=== PATIENT | female | born 1955 | race Caucasian/White ===

== ENCOUNTER 2020-10-02 11:40 | Inpatient (IN) ==
[2020-10-02] MEDS ORDERED: *HR* Propofol 200 MG/20 ML VIAL IVP ONE (12:03)
[2020-10-02] MEDS ORDERED: *HR* FentaNYL (PF) 100 MCG/2 ML VIAL ONE ×2 (12:03→14:27)
[2020-10-02] MEDS ORDERED: *HR* Midazolam HCl 2 MG/2 ML VIAL ONE (12:03)
[2020-10-02] MEDS ORDERED: Lidocaine -MPF 2% 2 ML VIAL ONE (12:04)
[2020-10-02] MEDS ORDERED: cefOXitin 2,000 MG in Water for inj. (sterile) 20 ML IVP ONE (12:24)
[2020-10-02] MEDS: Ringers Solution, Lactated 1,000 ML IVC SCH ×2 (12:38→17:11)
[2020-10-02 12:59] LABS: Hematocrit 39.5 % (35.3-44.9); Hemoglobin 12.9 g/dL (11.5-15.4)
[2020-10-02] MEDS ORDERED: Lidocaine HCL 4 ML Topical Solution (Laryng-O-Jet Kit Sterile Pak) TP ONE (13:11)
[2020-10-02] MEDS ORDERED: Promethazine 6.25 MG in Water for inj. (sterile) 20 ML IVPB PRN (13:24)
[2020-10-02] MEDS ORDERED: *HR* OxyCODONE Immed Rel 5 MG TABLET PO PRN (13:24)
[2020-10-02] MEDS ORDERED: *HR* HYDROmorphone PF 0.5 MG/0.5 ML SYRINGE IVP PRN (13:24)
[2020-10-02] MEDS ORDERED: Famotidine 20 MG/2 ML VIAL IVP ONE (13:24)
[2020-10-02] MEDS ORDERED: Acetaminophen IV 1,000 MG/100 ML BAG IVPB ONE (13:24)
[2020-10-02] MEDS ORDERED: Albuterol 2.5 MG/3 ML NEBULIZER IH PRN (13:24)
[2020-10-02] MEDS ORDERED: Ondansetron 4 MG/2 ML VIAL IVP PRN ×2 (13:24→17:33)
[2020-10-02] MEDS ORDERED: *HR* Labetalol 20 MG/4 ML SYRINGE IVP PRN (13:24)
[2020-10-02] MEDS ORDERED: Ondansetron 4 MG/2 ML VIAL ONE (14:34)
[2020-10-02] MEDS ORDERED: *HR* Rocuronium Bromide 50 MG/5 ML VIAL ONE (14:42)
[2020-10-02] MEDS ORDERED: 0.9 % Sodium Chloride 1,000 ML IVC SCH (17:33)
[2020-10-02] MEDS ORDERED: Naloxone 0.4 MG/ML INJ IVP PRN (17:33)
[2020-10-02] MEDS: *HR* Heparin 5,000 UNIT/ML VIAL SQ SCH ×2 (18:10→21:47)
[2020-10-02] MEDS: Ketorolac 15 MG/ML VIAL IVP SCH (18:11)
[2020-10-02] MEDS: Acetaminophen IV 1,000 MG/100 ML BAG IVPB SCH (18:47)
[2020-10-02 20:14] LABS: Basophils % 0.2 %; Eosinophils % 0.1 %; Hematocrit 28.6 % (35.3-44.9); Immature Granulocytes % 0.4 % (0-4); Lymphocytes # 1.1 K/mcL (0.6-4.6); Lymphocytes % 7.9 %; Mean Corpuscular HGB Conc 32.2 g/dL (31.6-35.5); Mean Corpuscular Hemoglobin 29.8 pg (28.0-33.3); Mean Corpuscular Volume 92.6 fL (83.0-100.0); Mean Platelet Volume 8.9 fL (9.4-12.4); Monocytes # 0.6 K/mcL (0.0-1.3); Monocytes % 4.7 %; Neutrophils # 11.7 K/mcL (1.6-8.9); Platelet Count 332 K/mcL (140-400); Red Blood Count 3.09 M/mcL (3.82-4.97); Red Cell Distribution Width 13.3 % (11.5-14.5); Segmented Neutrophils % 86.7 %; White Blood Count 13.5 K/mcL (4.3-11.1)
[2020-10-02 20:19] LABS: INR 1.1; Prothrombin Time 13.2 Seconds (9.4-12.1)
[2020-10-02 20:22] LABS: Hemoglobin 9.2 g/dL (11.5-15.4)
[2020-10-02 20:34] LABS: BUN/Creatinine Ratio 15 (6-26); Blood Urea Nitrogen 11 mg/dL (8-23); Calcium 8.1 mg/dL (8.6-10.3); Carbon Dioxide 22 mEq/L (23-29); Chloride 101 mEq/L (98-107); Glucose 232 mg/dL (70-105); Osmolality,Calculated 279 (280-300); Potassium 4.4 mEq/L (3.5-5.1); Sodium 131 mEq/L (136-145); eGFR For African Americans > 60 (> 60); eGFR For Non-African Americans > 60 (> 60)
[2020-10-02] MEDS ORDERED: 0.9 % Sodium Chloride 250 ML ONE (21:36)
[2020-10-02] MEDS: 0.9 % Sodium Chloride 1,000 ML IVC SCH (21:44)
[2020-10-03] MEDS ORDERED: *HR* Dextrose 50 % in Water (Vial) 50 ML VIAL IVP PRN (00:24)
[2020-10-03] MEDS ORDERED: D5% in Water 1,000 ML IVC PRN (00:24)
[2020-10-03] MEDS ORDERED: Dextrose Gel 15 GM/37.5 ML TUBE PO PRN ×2 (00:24)
[2020-10-03] MEDS: Ketorolac 15 MG/ML VIAL IVP SCH ×4 (00:40→17:42)
[2020-10-03] MEDS: *HR* Heparin 5,000 UNIT/ML VIAL SQ SCH ×3 (00:41→19:44)
[2020-10-03] MEDS: Acetaminophen IV 1,000 MG/100 ML BAG IVPB SCH ×5 (00:57→23:48)
[2020-10-03 03:19] LABS: Basophils % 0.1 %; Hematocrit 28.2 % (35.3-44.9); Hemoglobin 9.3 g/dL (11.5-15.4); Immature Granulocytes % 0.3 % (0-4); Lymphocytes # 0.9 K/mcL (0.6-4.6); Lymphocytes % 8.5 %; Mean Corpuscular Hemoglobin 29.8 pg (28.0-33.3); Mean Corpuscular Volume 90.4 fL (83.0-100.0); Mean Platelet Volume 9.6 fL (9.4-12.4); Monocytes # 0.5 K/mcL (0.0-1.3); Monocytes % 5.4 %; Neutrophils # 8.5 K/mcL (1.6-8.9); Platelet Count 235 K/mcL (140-400); Red Blood Count 3.12 M/mcL (3.82-4.97); Red Cell Distribution Width 13.3 % (11.5-14.5); Segmented Neutrophils % 85.7 %
[2020-10-03 03:36] LABS: BUN/Creatinine Ratio 21 (6-26); Blood Urea Nitrogen 13 mg/dL (8-23); Carbon Dioxide 22 mEq/L (23-29); Chloride 100 mEq/L (98-107); Glucose 206 mg/dL (70-105); Osmolality,Calculated 276 (280-300); Potassium 4.3 mEq/L (3.5-5.1); Sodium 130 mEq/L (136-145); eGFR For African Americans > 60 (> 60); eGFR For Non-African Americans > 60 (> 60)
[2020-10-03] MEDS: Insulin LISPRO 300 UNITS/3 ML VIAL SUBQ SCH ×3 (06:21→17:45)
[2020-10-03] MEDS: 0.9 % Sodium Chloride 1,000 ML IVC SCH (09:15)
[2020-10-03] MEDS ORDERED: 0.9 % Sodium Chloride 1,000 ML IVC SCH (14:45)
[2020-10-04] MEDS: Insulin LISPRO 300 UNITS/3 ML VIAL SUBQ SCH ×5 (00:08→23:32)
[2020-10-04] MEDS: Ketorolac 15 MG/ML VIAL IVP SCH ×2 (04:53→07:34)
[2020-10-04] MEDS: *HR* Heparin 5,000 UNIT/ML VIAL SQ SCH ×3 (04:53→22:29)
[2020-10-04] MEDS: Acetaminophen IV 1,000 MG/100 ML BAG IVPB SCH (04:54)
[2020-10-04 06:44] LABS: Basophils % 0.3 %; Eosinophils # 0.1 K/mcL (0.0-0.6); Eosinophils % 1.5 %; Hematocrit 26.5 % (35.3-44.9); Hemoglobin 8.5 g/dL (11.5-15.4); Immature Granulocytes % 0.3 % (0-4); Lymphocytes # 2.4 K/mcL (0.6-4.6); Lymphocytes % 34.2 %; Mean Corpuscular HGB Conc 32.1 g/dL (31.6-35.5); Mean Corpuscular Hemoglobin 29.5 pg (28.0-33.3); Mean Platelet Volume 9.2 fL (9.4-12.4); Monocytes # 0.5 K/mcL (0.0-1.3); Monocytes % 6.7 %; Neutrophils # 4.1 K/mcL (1.6-8.9); Platelet Count 240 K/mcL (140-400); Red Blood Count 2.88 M/mcL (3.82-4.97); Red Cell Distribution Width 13.7 % (11.5-14.5); White Blood Count 7.1 K/mcL (4.3-11.1)
[2020-10-04 07:01] LABS: BUN/Creatinine Ratio 12 (6-26); Blood Urea Nitrogen 7 mg/dL (8-23); Carbon Dioxide 22 mEq/L (23-29); Chloride 106 mEq/L (98-107); Glucose 143 mg/dL (70-105); Osmolality,Calculated 280 (280-300); Potassium 3.6 mEq/L (3.5-5.1); Sodium 135 mEq/L (136-145); eGFR For African Americans > 60 (> 60); eGFR For Non-African Americans > 60 (> 60)
[2020-10-04] MEDS ORDERED: Acetaminophen 325 MG TABLET PO PRN (10:31)
[2020-10-05] MEDS: *HR* Heparin 5,000 UNIT/ML VIAL SQ SCH ×3 (05:06→22:44)
[2020-10-05] MEDS: Insulin LISPRO 300 UNITS/3 ML VIAL SUBQ SCH ×3 (05:07→17:53)
[2020-10-06] MEDS: Insulin LISPRO 300 UNITS/3 ML VIAL SUBQ SCH (00:57)
[2020-10-06] MEDS: *HR* Heparin 5,000 UNIT/ML VIAL SQ SCH (05:31)
[2020-10-06 11:10] VITALS: BP 135/85
[2020-10-06] MEDS ORDERED: Insulin LISPRO 300 UNITS/3 ML VIAL SUBQ SCH (11:30)
== END 2020-10-06 14:15 | disposition home or self-care (01) | DRG 330 ==
LOC: SAMDAY 11:40 → 3ANU 16:58 → 2NNU 22:07 → 3ANU 10-04 16:34
PROVIDERS: ADMIT Surgery; ATTEND Surgery